=== PATIENT | female | born 1960 | race Caucasian/White ===

== ENCOUNTER 2017-12-17 10:38 | Day surgery (SDC) | payer OTHER ==
[2017-12-17] MEDS: NS 1,000 ML IV (11:00)
[2017-12-17] MEDS ORDERED: LIDOCAINE 2% INJ 100 MG/5 ML SDV (FOR ANES.) As Ordered (11:54)
[2017-12-17] MEDS ORDERED: PROPOFOL 200 MG/20 ML VIAL As Ordered ×2 (11:54→12:24)
== END 2017-12-17 12:57 | disposition home or self-care (01) ==
LOC: M OPP 10:38
DX: Z12.11 Encounter for screening for malignant neoplasm of colon (principal); D12.5 Benign neoplasm of sigmoid colon; Q43.8 Other specified congenital malformations of intestine; Z80.0 Family history of malignant neoplasm of digestive organs; Z90.711 Acquired absence of uterus with remaining cervical stump
CPT/HCPCS: 45380

== ENCOUNTER → 2018-05-13 | Outpatient (CLI) | payer OTHER | LOC: M RAD 08:50 | DX: Z12.31 Encounter for screening mammogram for malignant neoplasm of breast (principal); Z80.0 Family history of malignant neoplasm of digestive organs | CPT/HCPCS: 77067 ==

== ENCOUNTER → 2021-03-09 | Outpatient (REF) ==
[~2021-03-09] MED LIST: MULT1TAB10 PO; MULTCAP PO
== END ==
LOC: M LAB 14:01
PROVIDERS: ATTEND Nurse Practitioner Adult Health
DX: Z02.89 Encounter for other administrative examinations (principal)

== ENCOUNTER → 2022-11-02 | Outpatient (REF) | payer OTHER | LOC: M WUC 19:28 | PROVIDERS: ATTEND Student in an Organized Health Care Education/Training Program | DX: R30.0 Dysuria (principal) ==

== ENCOUNTER 2023-03-21 10:39 | Day surgery (SDC) | payer OTHER ==
[~2023-03-21] VITALS: Ht 157.5 cm; Wt 60.5 kg
[~2023-03-21 10:39] MED LIST changes: +CALC500C14 PO; +LIDOCAINE 1% SDV 30ML VIAL As Ordered ONE; +LIDOCAINE 2% 100MG/5ML SDV (FOR ANES.) As Ordered ONE; +NS 1,000 ML IV ONE; +SILVER NITRATE APPLICATOR (1 = QTY 10) As Ordered ONE; +VITMTA PO; +propofoL 200 MG/20 ML VIAL As Ordered ONE
[2023-03-21 11:36] VITALS: TEMP 97.9
[2023-03-21 11:52] VITALS: BP 134/76; O2SAT 98
== END 2023-03-21 12:06 | disposition home or self-care (01) ==
LOC: M OPP 10:39
PROVIDERS: ATTEND Surgery
DX: Z12.11 Encounter for screening for malignant neoplasm of colon (principal); Z80.0 Family history of malignant neoplasm of digestive organs; K64.4 Residual hemorrhoidal skin tags; K57.30 Diverticulosis of large intestine without perforation or abscess without bleeding

== ENCOUNTER → 2024-02-26 | Outpatient (REF) | payer OTHER ==
[~2024-02-26] MED LIST changes: -LIDOCAINE 1% SDV 30ML VIAL As Ordered ONE; -LIDOCAINE 2% 100MG/5ML SDV (FOR ANES.) As Ordered ONE; -NS 1,000 ML IV ONE; -SILVER NITRATE APPLICATOR (1 = QTY 10) As Ordered ONE; -propofoL 200 MG/20 ML VIAL As Ordered ONE
== END ==
LOC: M LAB REF 12:48
PROVIDERS: ATTEND Nurse Practitioner Family
DX: R30.0 Dysuria (principal)